=== PATIENT | male | born 1960 | race Hispanic/Latino ===

== ENCOUNTER 2025-04-28 15:51 | Emergency (ER) | payer MEDICARE, SELFPAY ==
[2025-04-28] MEDS ORDERED: Dexamethasone 10 MG/ML VIAL ONE (19:07)
== END 2025-04-28 19:14 | disposition home or self-care (01) ==
LOC: CSHERS 15:51
DX: B34.9 Viral infection, unspecified (principal); F17.210 Nicotine dependence, cigarettes, uncomplicated
CPT/HCPCS: 87081; 87428; 87430; 96372; 99283; J1100

== ENCOUNTER 2025-05-12 10:31 | Outpatient (CLI) | payer MEDICARE, OTHER ==
[2025-05-12 12:05] LABS: Hematocrit 29.3 % (38.8-50.0); Hemoglobin 9.9 g/dL (13.5-17.5)
[2025-05-12 12:44] LABS: Anion Gap 10 mmol/L (10-20); BUN (Urea Nitrogen) 10 mg/dL (8.4-25.7); Calc. Creatinine Clearance 0 mL/min (70-130); Calcium 8.0 mg/dL (7.8-10.44); Carbon Dioxide 24 mmol/L (23-31); Chloride 106 mmol/L (98-107); Glucose 106 mg/dL (80-115); Potassium 4.3 mmol/L (3.5-5.1); Sodium 136 mmol/L (136-145)
== END 2025-05-12 10:32 | disposition home or self-care (01) ==
LOC: CSHLAB 10:31
PROVIDERS: ATTEND Otolaryngology
DX: Z01.818 Encounter for other preprocedural examination (principal)
CPT/HCPCS: 80048; 85014; 85018; 93005; 93010

== ENCOUNTER 2025-05-16 10:49 | Observation (INO) | payer OTHER ==
[2025-05-12 11:21] VITALS: BMI 28.5
[2025-05-16] MEDS ORDERED: Rocuronium Bromide 10 MG/ML (10ML VIAL) ONE (13:50)
[2025-05-16] MEDS ORDERED: Ondansetron PF 4 MG/2 ML Vial ONE (13:50)
[2025-05-16] MEDS ORDERED: Lidocaine 1% PF 5 ML VIAL ONE (13:50)
[2025-05-16] MEDS ORDERED: SUCCINYLCHOLINE/SOD CL,ISO/PF 200 MG/10 ML SYRINGE FS ONE (13:50)
[2025-05-16] MEDS ORDERED: PROPOFOL 20 ML ONE (13:51)
[2025-05-16] MEDS ORDERED: Tranexamic Acid 1,000 MG/10 ML VIAL ONE (14:13)
[2025-05-16] MEDS ORDERED: SUGAMMADEX SODIUM 200 MG/2 ML VIAL ONE (14:15)
[2025-05-16] MEDS ORDERED: PROPOFOL 0 ML ONE (14:20)
[2025-05-16 15:17] VITALS: BP 124/67
[2025-05-17 11:03] VITALS: BMI 28.5
[2025-05-17 12:51] VITALS: TEMP 98
== END 2025-05-17 14:05 | disposition home or self-care (01) ==
LOC: CSHSDC 10:49 → CSHICU 15:01
PROVIDERS: ADMIT Otolaryngology; ATTEND Otolaryngology
PROC: 0CBR8ZX Excision of Epiglottis, Via Natural or Artificial Opening Endoscopic, Diagnostic (ICD-10-PCS; principal; 2025-05-16)
PROC: 0CBM8ZX Excision of Pharynx, Via Natural or Artificial Opening Endoscopic, Diagnostic (ICD-10-PCS; 2025-05-16)
DX: C01 Malignant neoplasm of base of tongue (principal); C32.1 Malignant neoplasm of supraglottis; H60.61 Unspecified chronic otitis externa, right ear; F17.210 Nicotine dependence, cigarettes, uncomplicated
CPT/HCPCS: 31535; J0169; J1100; J2704; 88305; 88331; 88342

== ENCOUNTER 2025-06-28 05:49 | Day surgery (SDC) | payer OTHER ==
[2025-06-27 16:09] VITALS: BMI 23.2
[2025-06-28 06:45] LABS: Platelet Count 51 10x3/uL (150-450)
[2025-06-28 06:46] LABS: Hematocrit 26.0 % (38.8-50.0); Hemoglobin 8.8 g/dL (13.5-17.5); Mean Corpuscular Hemoglobin 33.8 pg (27.0-33.0); Mean Corpuscular Volume 100.0 fL (81.2-95.1); Red Blood Cell (RBC) Count 2.60 10x6/uL (4.32-5.72); White Blood Cell (WBC) Count 3.46 10x3/uL (3.5-10.5)
[2025-06-28 06:48] LABS: Anion Gap 12 mmol/L (10-20); BUN (Urea Nitrogen) 13 mg/dL (8.4-25.7); Calc. Creatinine Clearance 106 mL/min (70-130); Calcium 7.7 mg/dL (7.8-10.44); Carbon Dioxide 19 mmol/L (23-31); Chloride 110 mmol/L (98-107); Glucose 116 mg/dL (80-115); Potassium 4.2 mmol/L (3.5-5.1); Sodium 137 mmol/L (136-145)
[2025-06-28] MEDS ORDERED: Bupivacaine/Epinephrine 0.25% 30 ML VIAL ONE (06:52)
[2025-06-28] MEDS ORDERED: CEFAZOLIN 2 GM VIAL ONE (06:52)
[2025-06-28] MEDS ORDERED: PROPOFOL 20 ML ONE (07:19)
[2025-06-28] MEDS ORDERED: Lidocaine 1% PF 5 ML VIAL ONE (07:26)
[2025-06-28] MEDS ORDERED: Ondansetron PF 4 MG/2 ML Vial ONE ×2 (07:50→08:36)
== END 2025-06-28 09:16 | disposition home or self-care (01) ==
LOC: CSHSDC 05:49
PROVIDERS: ATTEND Surgery
PROC: 0JH60XZ Insertion of Tunneled Vascular Access Device into Chest Subcutaneous Tissue and Fascia, Open Approach (ICD-10-PCS; principal; 2025-06-28)
DX: C76.0 Malignant neoplasm of head, face and neck (principal); Z87.891 Personal history of nicotine dependence
CPT/HCPCS: 36561; 71045; 80048; 85027; J1642; J2405; J2704; A6258; C1788